=== PATIENT | male | born 1945 ===

== ENCOUNTER 2017-08-17 10:53 | Day surgery (SDC) | payer MEDICARE ==
[2017-08-13 10:57] VITALS: BMI 31.0
[2017-08-17] MEDS ORDERED: Bupivacaine HCl 0.5% PF (10 ml) Inj ONE ×2 (13:02→14:23)
[2017-08-17] MEDS ORDERED: ceFAZolin IV 2 gm in Dextrose 0 GM/0 ML BAG IVPB ONE (13:02)
[2017-08-17] MEDS ORDERED: Lidocaine 1% Inj (20ml) ONE (13:02)
[2017-08-17] MEDS ORDERED: ceFAZolin IV 1 gm in Dextrose 1 GM/50 ML BAG IVPB ONE (14:23)
[2017-08-17] MEDS ORDERED: Propofol 10 mg/ml Inj (20 ML) ONE (14:34)
[2017-08-17] MEDS ORDERED: Midazolam 2 MG/2 ML VIAL ONE (14:34)
[2017-08-17] MEDS ORDERED: Succinylcholine Chloride 20 mg/ml Syr (5 ml) IV ONE (14:41)
[2017-08-17] MEDS ORDERED: Lidocaine Hydrochloride 5 ML INJ ONE (14:41)
[2017-08-17] MEDS ORDERED: Lactated Ringer's 1,000 ML IV ONE ×2 (15:15→15:25)
[2017-08-17 15:44] VITALS: TEMP 97.4
[2017-08-17] MEDS ORDERED: Oxycodone/Acetaminophen 5/325 mg Tab PO PRN (16:24)
[2017-08-17 16:45] VITALS: BP 108/68; PULSE 83; RESP 15; O2SAT 97
--- NOTE | 2017-10-05 03:25 | OP ---
PROCEDURE DATE: 08/17/2017 PREOPERATIVE DIAGNOSES: Right hydrocele, left hydrocele, right inguinal hernia, elevated prostate-specific antigen, voiding dysfunction. POSTOPERATIVE DIAGNOSES: Right hydrocele, left hydrocele, right inguinal hernia, elevated prostate-specific antigen, voiding dysfunction. PROCEDURE: Right hydrocelectomy. SURGEON: Paul Cardoza MD SPECIMENS SENT: Hydrocele sac. COMPLICATIONS: There were no complications. ESTIMATED BLOOD LOSS: Less than 10 mL. FINDINGS: There is a gigantic hernia that is not addressed during this procedure. There is also bilateral hydrocele. The procedure as follows, the CAT scan was relatively normal. See the body of the report. Perhaps a little pale. There are no testicular or intratesticular masses. There were no complications. DRAIN: We left a drain, a Andrea drain. INDICATIONS: See history and physical for further details. A very pleasant gentleman who is here for the above. I have discussed with the patient the risks and benefits of the procedure. I specifically recommend that he has his hernia addressed as well. I even explained that as usually it is an inguinal incision and perhaps that also would address the hydrocele. He had a previous hydrocelectomy. But the main concern here is also from my end that besides the hernia is the presence of an abnormal PSA and voiding dysfunction. But he is more worried about the mass in his testicle. So he the above risks of procedure and then further plans to follow up. PROCEDURE IN DETAIL: After obtaining informed consent, the patient was placed on the table. Routine monitors were placed. Time-out was called. We confirmed the patient and positioning. He was placed in supine position. We confirmed with time-out. We gave the patient anesthesia and we also gave antibiotic prophylaxis. We made a transverse scrotal incision in a relatively dependent portion of the scrotum. Carried down to the underlying muscular layers. Carefully, flow was , so we can deliver the hydrocele sac. We now delivered the entire sac with the testicle. I did feel that there is a separate hernia, but we did not deliver that area. We now opened up the sac, these are actually a couple of individual areas that are cystic. We opened them individually and actually aggie their edges separately, but there is no major one formed hydrocele component. We inspected carefully. There are no other abnormalities appreciated. We now placed the testicle back in its anatomical position. We delivered the little [place] drain through the multi-indented portion of the scrotum. We closed it in a couple of layers. Overall, the patient tolerated this procedure without complication. He was given a dry sterile dressing and scrotal support. The patient tolerated the procedure well without complications. ADDENDUM: Again my recommendation is going to see, again I discussed with the patient today and asked him to consider surgical evaluation for hernia repair, but I am also asking the patient to have a prostate ultrasound and prostate ultrasound-guided biopsy. Paul Cardoza MD
--- NOTE | 2017-10-05 09:05 | HP ---
REASON FOR ADMISSION: ____. HISTORY OF PRESENT ILLNESS: The patient has an elevated PSA . hydrocele that is disturbing him. PAST MEDICAL AND SURGICAL HISTORY: As listed on the chart. He may be has a history of a previous hydrocelectomy. He has no history of an [place]. REVIEW OF SYSTEMS: As listed above, otherwise noncontributory. No weight loss, chest pain, or shortness of breath. MEDICATIONS: See the chart. ALLERGIES: NONE. PHYSICAL EXAMINATION: GENERAL: A well-nourished male, in no apparent distress. VITAL SIGNS: Within normal limits. LUNGS: Clear. HEART: Normal S1, S2. ABDOMEN: Overall soft. In the right inguinal area, there is a gigantic hernia. He also has a bilateral hydrocele. Obviously, he has been seen on ultrasonography. . NEUROLOGIC: Otherwise, unremarkable. EXTREMITIES: Unremarkable. LABS: See chart. PSA noted. BUN and creatinine noted. DIAGNOSES: 1. Hydrocele on the right. 2. Hydrocele on the left. 3. Gigantic right inguinal hernia. 4. Elevated PSA. 5. Voiding dysfunction. ASSESSMENT: In summary, a very pleasant gentleman, but he is not following my recommendations. I did discuss with him surgical intervention. I discussed with him also getting abdominal surgery consult. I also discussed inguinal incisions versus . As we discussed all of the options, risks, benefits, and alternatives at length, we . recommendation for the patient is that he should be seeking a second opinion for the hernia. PLAN: 1. Today, we are going to bring him to the operating room. 2. May need surgical followup. 3. In addition, ____ I explained to the patient multiple times with translators . 4. He needs a ____ to rule out any prostate malignancy. He has voiding dysfunction. Elevated PSA. Urgency, frequency, irritated and obstructive complaints. He needs to follow urologic exam to rule out any malignancy. 5. Today, antibiotic prophylaxis. 6. Hydrocelectomy. 7. Further plans will be for a followup. Paul Nani, MD [facility] # [id number]
== END 2017-08-17 17:14 | disposition home or self-care (01) ==
LOC: C.SDS 10:53
PROVIDERS: ATTEND Urology
DX: N43.3 Hydrocele, unspecified (principal); K40.90 Unilateral inguinal hernia, without obstruction or gangrene, not specified as recurrent; R97.20 Elevated prostate specific antigen [PSA]; R39.15 Urgency of urination; R35.0 Frequency of micturition
CPT/HCPCS: 55040; 82948; 88304; J0690; J2250; J2704; J3010; J7120